=== PATIENT | male | born 1985 | race Caucasian/White ===

== ENCOUNTER 2016-09-27 05:51 | Day surgery (SDC) | payer OTHER ==
--- NOTE | 2016-09-23 08:27 | PDGENHP ---
History and Physical - Chief Complaint R HIP PAIN - History of Present Illness 1. Bilateral Femoroacetabular impingement (JORDYN) Cam type, Labral tear - Right side symptomatic 2. Bilateral Borderline/cecelia Hip Dyplasia HISTORY OF PRESENT ILLNESS: Светланаis a 31 y.o.~very ~active male~who I have had the pleasure to consult on today.~I have enjoyed meeting him. He~lives in [place]. 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 ~Guero~is 30yo; he~has none children. ~Светланаenjoys sports,: golfing,football,basketball,snow boarding, walking. Alejandro's right~hip pain started several years ago with increase pain in last few months, with little~previous complaints~and with no~recalled trauma or injury. ~ Светланаhas~a known history of hip dysplasia. He complains of some instability. Presentation today is of~lateral right~hip pain. ~The hip does not~wake him~at night and does~click and catch on him. Sitting depends on the activities can cause discomfort for him. Светланаdoes not~report suffering from lower back pain episodes. Светланаhas not~participated in physical therapy and has tried other conservative measures including massage therapy. He~has not~received sufficient symptomatic improvement. Светланаhas~utilized medication for pain management, including tramadol. Светланаhas used medication for 2.5 ~months. Светланаdenies issues with the left hip. ~ Светланаunderstands that he~has a hip and pelvis problem which should be researched and wishes to get a better understanding of his~hip status, followed by an establishment of a treatment strategy, hoping he~would be able to get back to his~well being active life. History: Past medical history: ~ None which is relevant Relevant familial history: None which is relevant Past surgical history: Right foot cyst removal Светланаdenies problematic issues with general anesthesia in the past. I have reviewed, verified and agree with the past medical, surgical, family and social history. Current Medications:~has a current medication list which includes the following prescription(s): tramadol. ALLERGIES:~has No Known Allergies. Objective: Physical Examination: Светланаis 5 feet 9~inches tall and weighs~170~Lbs. Alejandro~is AAO x3; he~is well- nourished, in NAD. Skin is warm and dry. ~Breathing is non-labored. ~CV with RRR by pulse. Abdomen is soft, NTND. ~Currently, he~walks with a antalgic gait~ gait. He~has~no leg length discrepancy and presents~with no~signs of joint laxity. He~is fit looking. ~~[place] 0 Trendelenburg sign is negative and proprioception~is normal, both~sides. Lower spine examination is negative~for sciatic or femoral nerve irritation with negative~SLR &~femoral stretch tests. Range of motion of the spine is normal~for flexion, extension, and rotations, with no~associated pain. SIJs examination is normal with normal~FRANCINE in relation and local tenderness. Strength, Sensation and pulses are normal - bilaterally Ankles and knees exams are normal~and no~mal-alignment is evident. Hip ROM (degrees): ER At 90~hip FL IR At 90~hip FL IR Neutral hip ER Neutral hip AB AD FL EX R 35 0 40 15 30 10 95 0 L 40 15 40 10 30 10 105 5 Specific hip and pelvis tests: Quadrant FRANCINE Roll Add. Longus R +++ +++ Negative Negative L Negative Negative Negative Negative Glut. Med ITB Pos. Imp R + Negative Negative L Negative Negative Negative Squeeze test measured strong Bony Symphysis pubis is pain free to touch while concentric activity of the rectus abdominis, does not~produce pain at its insertion. Ilio Psos specific tests are negative for pain during cycling for both hips. Greater trochanteric burse is pain free on Piriformis tests: FAIR is negative, with no local signs of neuritis related to sciatic nerve. Thigh circumference is symmetric with no evidence for muscle atrophy on both~ sides. Hamstrings tests are negative~tendinopathy On a daily basis, the following percentages reflect Alejandro's overall total pain: Deep hip: 100% Imaging: Radiology studies which I~have personally reviewed, analyzed and measured are below: XR: AP of the hip and pelvis: Performed in a good~technique Coccyx to pubic symphysis distance 2.9cm. Specific measurements show: NSA~ Lat. Cam LCE Lat. Pincer C.Over~sign Sharp's angle Head~Coverage % Sourcil~Angle ATDmm R N +++ 21 - - ~ 42 65 16 N L N +++ 20 - - 43 73 13 N [place]~Lines are preserved. No Pathological signs are seen in the Symphysis Pubis. No Pathological signs are seen at the Ischial~tuberosity. ~~~~~~~~~~~~~ Pos. wall sign Sup. Lat. OA NAD R + + 13 mm L + Negative 12mm Sclerosis ~~Dysplasia Comments R + +++ L + +++ X Table lateral: Anterior cam lesion is seen~ Decreased joint space. Alpha angle: Right 93 degrees on cross table lateral MRI shows: MRI with hypertrophic labrum with labral tear. Impression and plan:~ Светланаis a 31 y.o.~active male~suffering from symptomatic right hip pain due to Bilateral Borderline/cecelia Hip Dyplasia~And JORDYN cam type causing significant disability to him~and altering~his~sport and life activities. Physical examination, imaging, and his~story correspond with the diagnosis mentioned above. I have explained the diagnosis and its significance to Alejandro~and we have discussed the various possible treatment options~and their implications~with him. These include proceeding with conservative treatment while continuing to modify his~activities to avoid aggravating the hip further, resuming anti pain medications or intra articular injections (when needed) which can give temporary relief and a hip arthroscopy followed by JUAN (periacetabular osteotomy ) aiming to address the above pathology. We discussed the surgical option in depth and explained that we will need a CT to be more conclusive about our findings. Surgical intervention to repair the torn labrum will offer symptomatic relief for an indeterminate amount of time. However, to fix the pathology associated with hip dysplasia, a JUAN to correct the alignment of the hip socket may be warranted. Alejandro~understand that hip arthroscopy and JUAN are two separate procedures that are best performed one week apart, with the arthroscopy commencing first to "tighten up" any pathology evident in the hip joint (labral repair, etc.) and the JUAN open procedure occurring 7-10 days later to realign the acetabulum. Alejandro~will review the info presented. CT with 3D recon will be done in order to evaluate femoral torsion and to pre plan an accurate and optimal volume and location of bony resection. Prior to surgery, we will obtain an MR dGEMRIC in order to evaluate the cartilage quality. Alejandro~is happy with this plan. I have also supplied him~with handouts, outlining the expected surgical treatment and rehab involved. I wish Alejandro~all the best, ~~ Carly Billy, ATC History Information - Allergies/Home Medication List Allergies/Adverse Reactions: No Known Allergies Allergy (Verified 09/08/16 16:06) I have personally reviewed and updated: medical history - Social History Smoking Status: Heavy smoker
[2016-09-27] MEDS ORDERED: ACETAMINOPHEN 500 MG TAB PO ONE (06:19)
[2016-09-27] MEDS ORDERED: PREGABALIN 150 MG CAP PO ONE (06:19)
[2016-09-27] MEDS ORDERED: ceFAZolin 2 GM/DEXTROSE 100 ML IV ONE (06:19)
[2016-09-27] MEDS ORDERED: LIDOCAINE 1% 300 MG/30 ML SDV ONE (06:44)
[2016-09-27] MEDS ORDERED: fentaNYL 100 MCG/2 ML INJ ONE ×2 (06:52→08:21)
[2016-09-27] MEDS ORDERED: PROPOFOL 200 MG/20 ML VIAL ONE ×2 (06:53→07:27)
[2016-09-27] MEDS ORDERED: ONDANSETRON 4 MG/2 ML VIAL ONE (06:53)
[2016-09-27] MEDS ORDERED: DEXAMETHASONE 4 MG/ML VIAL ONE (06:53)
[2016-09-27] MEDS ORDERED: ROCURONIUM 100 MG/10 ML VIAL ONE (06:53)
[2016-09-27] MEDS ORDERED: LIDOCAINE 2% 5 ML SDV ONE (06:53)
[2016-09-27] MEDS ORDERED: SUGAMMADEX SODIUM 200 MG/2 ML VIAL IVP ONE (06:53)
[2016-09-27] MEDS ORDERED: LR 1,000 ML IV ONE (06:55)
[2016-09-27] MEDS ORDERED: MIDAZOLAM 2 MG/2 ML VIAL ONE (07:07)
[2016-09-27] MEDS ORDERED: MIDAZOLAM 2 MG/2 ML VIAL IVP ONE (07:15)
--- NOTE | 2016-09-27 08:01 | PDANEPAE ---
ANE History of Present Illness right hip painful hardware ANE Past Medical History - Cardiovascular History Hx Hypertension: No Hx Arrhythmias: No Hx Chest Pain: No Hx Coronary Artery / Peripheral Vascular Disease: No Hx CHF / Valvular Disease: No Hx Palpitations: No - Pulmonary History Hx COPD: No Hx Asthma/Reactive Airway Disease: No Hx Recent Upper Respiratory Infection: No Hx Oxygen in Use at Home: No Hx Sleep Apnea: No Sleep Apnea Screening Result - Last Documented: Negative - Neurologic History Hx Cerebrovascular Accident: No Hx Seizures: No Hx Dementia: No - Endocrine History Hx Diabetes: No - Renal History Hx Renal Disorders: No - Liver History Hx Hepatic Disorders: No - Neurological & Psychiatric Hx Hx Neurological and Psychiatric Disorders: No - Cancer History Hx Cancer: No - Congenital Disorder History Hx Congenital Disorders: No - GI History Hx Gastrointestinal Disorders: No - Other Health History Other Health History: R HIP screws causing pain, bone spur R hip - Chronic Pain History Chronic Pain: Yes (R hip) - Surgical History Prior Surgeries: R hip scope 07-28-15. R hip sx for labral tear,dysplasia ANE Review of Systems Review of systems is: negative - Exercise capacity METS (RN): 4 METS ANE Patient History - Allergies Allergies/Adverse Reactions: No Known Allergies Allergy (Verified 09/08/16 16:06) - Home Medications Home medications: home medication list seen and reviewed - NPO status NPO Since - Liquids (Date): 09/26/16 NPO Since - Liquids (Time): 20:00 NPO Since - Solids (Date): 09/26/16 NPO Since - Solids (Time): 18:30 - Anes Hx Anes Hx: no prior problems - Smoking Hx Smoking Status: Heavy smoker - Family Anes Hx Family Hx Anesthesia Complications: NONE ANE Labs/Vital Signs - Vital Signs Blood Pressure: 135/99 Heart Rate: 68 Respiratory Rate: 16 O2 Sat (%): 97 Height: 176.53 cm Weight: 77.111 kg ANE Physical Exam - Airway Neck exam: FROM Mallampati Score: Class 1 Mouth exam: normal dental/mouth exam - Pulmonary Pulmonary: no respiratory distress - Cardiovascular Cardiovascular: regular rate and rhythym - ASA Status ASA Status: II ANE Anesthesia Plan Anesthesia Plan: GA w LMA
[2016-09-27] MEDS ORDERED: OXYCODONE/APAP 5/325 TAB PO PRN (08:07)
[2016-09-27] MEDS ORDERED: HYDROmorphONE/DILAUDID 1 MG/ML SYR IVP PRN (08:07)
[2016-09-27] MEDS ORDERED: fentaNYL 100 MCG/2 ML INJ IVP PRN (08:07)
[2016-09-27] MEDS ORDERED: PROMETHAZINE HCL 25 MG/ML INJ IVP PRN (08:07)
[2016-09-27] MEDS ORDERED: ACETAMINOPHEN 500 MG TAB PO PRN (08:07)
[2016-09-27] MEDS ORDERED: ONDANSETRON 4 MG/2 ML VIAL IVP PRN (08:07)
[2016-09-27] MEDS ORDERED: NALOXONE HCL 0.4 MG/ML INJ IVP PRN (08:07)
[2016-09-27] MEDS ORDERED: HYDROGEN PEROXIDE 236 ML BOTTLE TP ONE (08:21)
--- NOTE | 2016-09-27 09:56 | POSTANESTH ---
Post Anesthetic Evaluation Cardiovascular Status: Normal, Stable Respiratory Status: Normal, Stable Level of Consciousness/Mental Status: Can Participate in Eval Pain Control: Adequate, Prn Tx Ordered Nausea/Vomiting Control: Adequate, Prn Tx Ordered Complications Possibly Related to Anesthesia: None Noted
[2016-09-27 10:10] VITALS: TEMP 98.4
[2016-09-27 10:29] VITALS: O2SAT 93
[2016-09-27 10:32] VITALS: BP 130/80; PULSE 90; RESP 13
== END 2016-09-27 11:53 | disposition home or self-care (01) ==
LOC: FSGY 05:51
PROVIDERS: ATTEND Orthopaedic Surgery Sports Medicine
PROC: 0SP904Z Removal of Internal Fixation Device from Right Hip Joint, Open Approach (ICD-10-PCS; principal; 2016-09-27 07:15)
PROC: 0QB20ZZ Excision of Right Pelvic Bone, Open Approach (ICD-10-PCS; principal; 2016-09-27 07:15)
DX: T84.84XA Pain due to internal orthopedic prosthetic devices, implants and grafts, initial encounter (principal); M25.851 Other specified joint disorders, right hip
CPT/HCPCS: J0690; J1100; J2250; J2405; J2704; J3010